=== PATIENT | male | born 1980 | race Caucasian/White ===

== ENCOUNTER 2024-06-24 12:23 | Inpatient (IN) | payer SELFPAY ==
[2024-06-24 12:24] VITALS: BP 172/102; PULSE 95; RESP 18; TEMP 36; O2SAT 95; BMI 31.5
--- NOTE | 2024-06-24 12:28 | W.ED.PSYCHS ---
HPI - Psych General: Chief Complaint: Psychiatric Symptoms Stated Complaint: 96 Time Seen by Provider: 06/24/24 12:24 Source: patient and police Mode of arrival: ambulatory Limitations: no limitations History of Present Illness: 43-year-old male here with police officers under a court ordered 96-hour hold he states has been fighting with his ex he does appear agitated and very paranoid here he had sent her messages saying he is going to kill himself it also made threats to her and had been placed under the 96-hour hold. Denies any worse improved factors Associated symptoms: Reports suicidal ideation Related Data Home Medications ?Medication ?Instructions ?Recorded ?Confirmed No Known Home Medications 06/24/24 06/24/24 Allergies Allergy/AdvReac Type Severity Reaction Status Date / Time No Known Allergies Allergy Verified 06/24/24 13:14 Review of Systems Const: Denies: fever(s), chills, body aches or change in appetite ENMT: Denies: throat pain or dental pain Card: Denies: chest pain Resp: Denies: dyspnea GI: Denies: abdominal pain, nausea, vomiting or diarrhea Musc: Denies: neck pain or back pain Skin/Breast: Denies: rash Neuro: Denies: headache(s) Psych: Reports: paranoia and suicidal ideation Physical Exam Const: COMMON NORMALS: no acute distress, patient oriented x3 and healthy appearing HENMT: COMMON NORMALS: normocephalic and atraumatic HEAD & SCALP: normocephalic and atraumatic Eye: COMMON NORMALS: conjunctivae normal CONJUNCTIVA: Yes conjunctivae normal Neck/C-Spine: COMMON NORMALS: full ROM and supple Chest: COMMONS NORMALS: normal inspection of the chest Resp: COMMON NORMALS: normal respiratory effort Cardio: COMMON NORMALS: regular rate RATE: regular rate Extremity: COMMON NORMALS: normal to inspection and full ROM Neuro: COMMON NORMALS: patient oriented x3, moves all extremities and no focal motor deficits Psych: COMMON NORMALS: mental status grossly normal and cooperative ATTITUDE: Yes agitated MOOD & AFFECT: Yes irritable Skin: COMMON NORMALS: no rashes or lesions noted and no wounds GENERAL SKIN EXAM: no rashes or lesions noted Course Vital Signs: Vital signs: Vital Signs Temperature 96.8 F L 06/24/24 12:24 Pulse Rate 95 06/24/24 12:24 Respiratory Rate 18 06/24/24 12:24 Blood Pressure 172/102 06/24/24 12:24 Pulse Oximetry 95 06/24/24 12:24 Oxygen Delivery Me thod Room Air 06/24/24 12:24 MDM - Psych Medical Decision Making Patient presents here under court ordered 96-hour hold. Making suicidal threats he is medically cleared I spoke to psychiatrist will admit Medical Records I reviewed the patient's medical records. Lab Data I reviewed the patient's lab results. 06/24/24 12:45 06/24/24 12:45 Laboratory Results WBC 7.26 10^3/uL (3.29-11.43) 06/24/24 12:45 RBC 4.79 10^6/uL (3.85-5.65) 06/24/24 12:45 Hgb 14.80 g/dL (11.27-16.99) 06/24/24 12:45 Hct 44.9 % (37-53) 06/24/24 12:45 MCV 93.7 fl (82-101) 06/24/24 12:45 MCH 30.9 pg (27-33) 06/24/24 12:45 MCHC 33.0 g/dL (30-55) 06/24/24 12:45 RDW 12.3 % (12.1-15.1) 06/24/24 12:45 Plt Count 311 10^3/cmm (157-399) 06/24/24 12:45 MPV 8.2 fL (7.4-10.4) 06/24/24 12:45 Neut % (Auto) 63.7 % 06/24/24 12:45 Lymph % (Auto) 24.7 % 06/24/24 12:45 [place] % (Auto) 8.0 % 06/24/24 12:45 Eos % (Auto) 2.5 % 06/24/24 12:45 Baso % (Auto) 0.8 % 06/24/24 12:45 Neut # (Auto) 4.63 10^3/uL (1.8-7.7) 06/24/24 12:45 Lymph # (Auto) 1.8 10^3/uL (0.8-4.8) 06/24/24 12:45 [place] # (Auto) 0.6 10^3/uL (0.2-0.9) 06/24/24 12:45 Eos # (Auto) 0.2 10^3/uL (0.0-0.8) 06/24/24 12:45 Baso # (Auto) 0.1 10^3/uL (0.0-0.1) 06/24/24 12:45 Nucleated RBC % (auto) 0 % 06/24/24 12:45 Nucleated RBCs # 0.0 /100WBC 06/24/24 12:45 Sodium 141 mmol/L (136-145) 06/24/24 12:45 Potassium 4.2 mmol/L (3.5-5.1) 06/24/24 12:45 Chloride 102 mmol/L (98-107) 06/24/24 12:45 Carbon Dioxide 29 mmol/L (22-29) 06/24/24 12:45 Anion Gap 14.2 (5-19) 06/24/24 12:45 BUN 12 mg/dL (6-20) 06/24/24 12:45 Creatinine 1.0 mg/dL (0.7-1.2) 06/24/24 12:45 GFR Calculation 81.6 mL/min (90-130) L 06/24/24 12:45 Glucose 104 mg/dL (65-115) 06/24/24 12:45 Calculated Osmolality 292 mOsm/kg (285-295) 06/24/24 12:45 Calcium 9.4 mg/dL (8.5-10.5) 06/24/24 12:45 Total Bilirubin 0.7 mg/dL (0.15-1.2) 06/24/24 12:45 AST 17 U/L (0-40) 06/24/24 12:45 ALT 13 U/L (0-41) 06/24/24 12:45 Alkaline Phosphatase 83 U/L (40-130) 06/24/24 12:45 Total Protein 7.5 g/dL (6.6-8.7) 06/24/24 12:45 Albumin 4.7 g/dL (3.5-5.2) 06/24/24 12:45 Globulin 2.8 g/dL (1.3-4.6) 06/24/24 12:45 Salicylates < 0.3 mg/dL (3-10) L 06/24/24 12:45 Urine Opiates Screen Negative ng/mL (Negative) 06/24/24 12:31 Acetaminophen < 5.0 ug/mL (10-30) L 06/24/24 12:45 Ur Barbiturates Screen Negative ng/mL (Negative) 06/24/24 12:31 Ur Phencyclidine Scrn Negative ng/mL (Negative) 06/24/24 12:31 Ur Amphetamines Screen Positive ng/mL (Negative) H 06/24/24 12:31 U Benzodiazepines Scrn Negative ng/mL (Negative) 06/24/24 12:31 Urine Cocaine Screen Negative ng/mL (Negative) 06/24/24 12:31 U Marijuana (THC) Screen Negative ng/mL (Negative) 06/24/24 12:31 Ethyl Alcohol < 10 mg/dL (0-10) 06/24/24 12:45 No radiology studies performed this visit Discharge Plan Discharge Patient Disposition: Admitted As Inpatient Admit Provider: Mehul Lr Clinical Impression: Suicidal ideation Condition: Stable Coding Level 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
--- NOTE | 2024-06-24 12:50 | PC.NURSE ---
96 hr rights reviewed with pt @[id number] with assistance of [facility] program officer Rudy Flores. All education reviewed at this time. Pt verbalized understanding to hold, but was unhappy about being placed on one. Pt currently cooperative, and appears agitated, but following verbal directions when asked. Pt copy left with pt. Pt provided a sandwich, soda and water at this time. No further needs.
[2024-06-24 12:52] LABS: Basophils # 0.1 10^3/uL (0.0-0.1); Basophils % 0.8 %; Eosinophils # 0.2 10^3/uL (0.0-0.8); Eosinophils % 2.5 %; Hematocrit 44.9 % (37-53); Lymphocytes # 1.8 10^3/uL (0.8-4.8); Lymphocytes % 24.7 %; Mean Corpuscular Hemoglobin 30.9 pg (27-33); Mean Corpuscular Volume 93.7 fl (82-101); Mean Platelet Volume 8.2 fL (7.4-10.4); Monocytes # 0.6 10^3/uL (0.2-0.9); Neutrophils # 4.63 10^3/uL (1.8-7.7); Neutrophils % 63.7 %; Nucleated Red Blood Cells % 0 %; Platelet Count 311 10^3/cmm (157-399); Red Blood Count 4.79 10^6/uL (3.85-5.65); Red Cell Distribution Width 12.3 % (12.1-15.1); White Blood Count 7.26 10^3/uL (3.29-11.43)
[2024-06-24 13:03] LABS: Amphetamines Screen Urine Positive (Negative); Barbiturates Screen Urine Negative (Negative); Benzodiazepines Screen Urine Negative (Negative); Cocaine Screen Urine Negative (Negative); Opiate Screen Urine Negative (Negative); PCP Screen Urine Negative (Negative); THC Screen Urine Negative (Negative)
[2024-06-24 13:08] LABS: Acetaminophen < 5.0 ug/mL (10-30); Alanine Aminotransferase 13 U/L (0-41); Albumin Level 4.7 g/dL (3.5-5.2); Alcohol Level < 10 mg/dL (0-10); Alkaline Phosphatase 83 U/L (40-130); Anion Gap 14.2 (5-19); Aspartate Amino Transferase 17 U/L (0-40); Blood Urea Nitrogen 12 mg/dL (6-20); Calcium 9.4 mg/dL (8.5-10.5); Carbon Dioxide 29 mmol/L (22-29); Chloride 102 mmol/L (98-107); Creatinine Clr Calc Pharmacy 112.7841; Globulin 2.8 g/dL (1.3-4.6); Glomerular Filtration Rate 81.6 mL/min (90-130); Glucose 104 mg/dL (65-115); Osmolality Calculated 292 mOsm/kg (285-295); Potassium 4.2 mmol/L (3.5-5.1); Salicylate < 0.3 mg/dL (3-10); Sodium 141 mmol/L (136-145); Total Bilirubin 0.7 mg/dL (0.15-1.2); Total Protein 7.5 g/dL (6.6-8.7)
[2024-06-24 13:52] VITALS: BP 149/92; PULSE 94; RESP 16; TEMP 36.7; O2SAT 99
[2024-06-24 14:00] VITALS: BP 149/92; PULSE 94; RESP 16; TEMP 36.7; O2SAT 99
[2024-06-24 19:59] VITALS: BP 145/100; PULSE 86; RESP 18; TEMP 37; O2SAT 98
[2024-06-24] MEDS: nicotine 4 mg lozenge MUCOUS MEM (21:15)
[2024-06-25 06:00] VITALS: BP 132/77; PULSE 77; RESP 16; TEMP 36.4; O2SAT 96
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
[2024-06-25] MEDS: nicotine 4 mg lozenge MUCOUS MEM ×2 (08:28→16:22)
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
[2024-06-25 14:00] VITALS: RESP 16
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
[2024-06-25 20:51] VITALS: BP 128/84; PULSE 96; RESP 18; TEMP 36.8; O2SAT 99
[2024-06-26 06:00] VITALS: BP 145/79; PULSE 81; RESP 18; TEMP 36.6; O2SAT 97
[2024-06-26] MEDS: nicotine 4 mg lozenge MUCOUS MEM ×4 (08:43→19:53)
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
[2024-06-26 14:00] VITALS: BP 145/85; PULSE 77; RESP 17; TEMP 36.6; O2SAT 99
--- NOTE | 2024-06-26 18:43 | P.NPUPN_ITS ---
Subjective NPU 2 Subjective: Patient presented today continuing to report that he is not needing to be here. He reported that he has no understanding or knowledge of any protection order that was served on 06/23/2024. He reported that he is not violent and has not hurt anyone in any situation in 20 years. We discussed the significant concerns we have if he is incapable of being honest about the situation we will be hard to evaluate his ability to be appropriate when he discharges. He continues to report no need for medication and no interest in medication. He continues to downplay the significance of any addiction denying the fact that he might not recall having the protection order for that because he was high on methamphetamine. Mental Status Exam 2 MSE Comments: This is an overweight but well developed white male in hospital scrubs with limited grooming and eye contact. No abnormal movements except for mild to moderate psychomotor agitation. Mostly uncooperative with exam in moderate to extreme distress. Speech was slightly increased rate and volume. Mood described as upset, affect is congruent and irritable. Thought process, linear. Thought content: patient denies suicidal or homicidal ideation, there were no delusions reported or noted, he denied auditory or visual hallucinations. Expressed suicidal thoughts but stated no intention to act on them. Denied any current thoughts of violence towards others. Reported significant anxiety due to current circumstances, including being in the hospital and concerns about his home and animals. Denied having depression, stating he does not have time for it. Described mood as feeling like all hope is lost. Expressed feelings of being persecuted, believing others are out to ruin his life. Denied experiencing visual hallucinations. Attention and concentration are intact and memory appeared somewhat unreliable likely intentionally because of aggressive behavior but wanting to discharge, but none were formally tested. He is alert and oriented x 3. Insight and judgment appeared limited and impulse control was impaired. Vitals/I&O/Wt Last Vital Signs Temp 98.7 F 06/26/24 19:57 Pulse 82 06/26/24 19:57 Resp 18 06/26/24 19:57 BP 152/97 06/26/24 19:57 Pulse Ox 97 06/26/24 19:57 O2 Del Method Room Air 06/26/24 06:00 Data NPU 06/24/24 12:45 06/24/24 12:45 A&P PDMP PDMP Reviewed: Not Reviewed Involuntary Hold Information 2 Hold Status: Legal Status: 96 Hour Hold Date/Time Hold Expires: 06/30/24 @ 00:26 Attestations NPU 2 Medical Necessity Statement*: Inpatient hospitalization is medically necessary and the clinically appropriate intervention at this time. We will monitor/initiate medications and make changes as indicated. Likely length of stay 3-5 days. Coding Level of Care Code Acute Code for Chg Fwmaverick
[2024-06-26 19:57] VITALS: BP 152/97; PULSE 82; RESP 18; TEMP 37.1; O2SAT 97
[2024-06-27 06:00] VITALS: BP 132/82; PULSE 66; RESP 16; O2SAT 99
[2024-06-27] MEDS: nicotine 4 mg lozenge MUCOUS MEM ×6 (10:03→21:49)
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
[2024-06-27 14:00] VITALS: BP 151/98; PULSE 76; RESP 18; TEMP 36.6; O2SAT 99
--- NOTE | 2024-06-27 19:19 | P.NPUPN_ITS ---
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 He denies anything in the affidavits other than making aggressive comments. He continues to deny any aggressive behavior either now or in the past in this relationship. Though the protective order does include history of a another event back in January of last year. He denied any need for any medications. Mental Status Exam 2 MSE Comments: This is an overweight but well developed white male in hospital scrubs with limited grooming and eye contact. No abnormal movements except for mild to moderate psychomotor agitation. Mostly uncooperative with exam in moderate to extreme distress. Speech was slightly increased rate and volume. Mood described as upset, affect is congruent and irritable. Thought process, linear. Thought content: patient denies suicidal or homicidal ideation, there were no delusions reported or noted, he denied auditory or visual hallucinations. Expressed suicidal thoughts but stated no intention to act on them. Denied any current thoughts of violence towards others. Reported significant anxiety due to current circumstances, including being in the hospital and concerns about his home and animals. Denied having depression, stating he does not have time for it. Described mood as feeling like all hope is lost. Expressed feelings of being persecuted, believing others are out to ruin his life. Denied experiencing visual hallucinations. Attention and concentration are intact and memory appeared somewhat unreliable likely intentionally because of aggressive behavior but wanting to discharge, but none were formally tested. He is alert and oriented x 3. Insight and judgment appeared limited and impulse control was impaired. Vitals/I&O/Wt Last Vital Signs Temp 98 F 06/27/24 14:00 Pulse 76 06/27/24 14:00 Resp 18 06/27/24 14:00 BP 151/98 06/27/24 14:00 Pulse Ox 99 06/27/24 14:00 O2 Del Method Room Air 06/26/24 06:00 Data NPU 06/24/24 12:45 06/24/24 12:45 A&P Assessment and plan (1) Suicidal ideation: (2) Partner relational problem: (3) Complicated bereavement: (4) Anxiety: (5) Homicidal ideation: Plan This is a 43-year-old white male with a significant history of addiction and concerns for agitation and aggression who presents resistant to treatment on a 96-hour hold. The assessment indicates that the individual is experiencing significant anxiety related to the current situation, which involves being involuntarily held in a psychiatric facility. There is a history of expressing suicidal ideation, although the individual denies any current intention to harm themselves or others. The individual reports feeling overwhelmed and perceives the situation as a threat to their personal life and well-being. There is no history of psychiatric hospitalization or outpatient services, and the individual denies having a history of depression or anxiety as ongoing issues. The individual also reports a significant traumatic event in the past, specifically the loss of a daughter in a car accident, which may contribute to the current emotional state. 1. He denies current need for medication. 2. Continue every 15 minute checks for safety. 3. Encourage individual, group and milieu therapies. 4. Encourage sober living treatment after discharge at the highest level of care to which he is willing to commit. 5. Get collateral information as patient continues to be likely unreliable as a historian. 6. Evaluate against the backdrop of the 96-hour hold. PDMP PDMP Reviewed: Not Reviewed Involuntary Hold Information 2 Hold Status: Legal Status: 96 Hour Hold Date/Time Hold Expires: 06/30/24 @ 00:26 Attestations NPU 2 Medical Necessity Statement*: Inpatient hospitalization is medically necessary and the clinically appropriate intervention at this time. We will monitor/initiate medications and make changes as indicated. Likely length of stay 3-5 days. Coding Level of Care Code Acute Code for Chg Fwd Diagnoses Suicidal ideation R45.851 Partner relational problem Z63.0 Complicated bereavement F43.21 Anxiety F41.9 Homicidal ideation R45.850
[2024-06-27 20:19] VITALS: BP 126/87; PULSE 84; RESP 16; O2SAT 100
[2024-06-28 06:00] VITALS: RESP 16
[2024-06-28] MEDS: nicotine 4 mg lozenge MUCOUS MEM ×6 (08:22→23:25)
--- NOTE | 2024-06-28 10:23 | PC.NURSE ---
Pt states that he rested well last night. He denies anxiety and depression, but states that having to cont to be in here is not helping the situation. States that he feels frustrated more than anything. States that he had bm yesterday. Pain is in low back and rates that a 6/10. He declines any medications for this. Did get up and take a shower today. The aid helped him look in his phone for numbers and he has been making a few calls today.
[2024-06-28 14:00] VITALS: BP 130/83; PULSE 68; RESP 16; O2SAT 100
--- NOTE | 2024-06-28 18:08 | P.NPUPN_ITS ---
Subjective NPU 2 Subjective: Patient presents today reporting that he is doing okay overall. He continues to be resistant to being here but was last agitated and aggressive about his position. We continued to discuss concerns about the protective order that is suggestive that he was acting out on his aggressive ideations right before he came to the hospital. But he continues to assert that he has not been aggressive or acted out on these thoughts. He denied any need or desire for medication. Mental Status Exam 2 MSE Comments: This is an overweight but well developed white male in hospital scrubs with limited grooming and eye contact. No abnormal movements except for mild to moderate psychomotor agitation. Mostly uncooperative with exam in moderate to extreme distress. Speech was slightly increased rate and volume. Mood described as upset, affect is congruent and irritable. Thought process, linear. Thought content: patient denies suicidal or homicidal ideation, there were no delusions reported or noted, he denied auditory or visual hallucinations. Expressed suicidal thoughts but stated no intention to act on them. Denied any current thoughts of violence towards others. Reported significant anxiety due to current circumstances, including being in the hospital and concerns about his home and animals. Denied having depression, stating he does not have time for it. Described mood as feeling like all hope is lost. Expressed feelings of being persecuted, believing others are out to ruin his life. Denied experiencing visual hallucinations. Attention and concentration are intact and memory appeared somewhat unreliable likely intentionally because of aggressive behavior but wanting to discharge, but none were formally tested. He is alert and oriented x 3. Insight and judgment appeared limited and impulse control was impaired. Vitals/I&O/Wt Last Vital Signs Temp 98.8 F 06/28/24 22:00 Pulse 82 06/28/24 22:00 Resp 18 06/28/24 22:00 BP 148/96 06/28/24 22:00 Pulse Ox 95 06/28/24 22:00 O2 Del Method Room Air 06/26/24 06:00 Weight last 48 hrs Weight 99.881 kg Data NPU 06/24/24 12:45 06/24/24 12:45 A&P Assessment and plan (1) Suicidal ideation: (2) Partner relational problem: (3) Complicated bereavement: (4) Anxiety: (5) Homicidal ideation: Plan This is a 43-year-old white male with a significant history of addiction and concerns for agitation and aggression who presents resistant to treatment on a 96-hour hold. The assessment indicates that the individual is experiencing significant anxiety related to the current situation, which involves being involuntarily held in a psychiatric facility. There is a history of expressing suicidal ideation, although the individual denies any current intention to harm themselves or others. The individual reports feeling overwhelmed and perceives the situation as a threat to their personal life and well-being. There is no history of psychiatric hospitalization or outpatient services, and the individual denies having a history of depression or anxiety as ongoing issues. The individual also reports a significant traumatic event in the past, specifically the loss of a daughter in a car accident, which may contribute to the current emotional state. 1. He denies current need for medication. 2. Continue every 15 minute checks for safety. 3. Encourage individual, group and milieu therapies. 4. Encourage sober living treatment after discharge at the highest level of care to which he is willing to commit. 5. Get collateral information as patient continues to be likely unreliable as a historian. 6. Evaluate against the backdrop of the 96-hour hold. May need to extend to 21-day hold. PDMP PDMP Reviewed: Not Reviewed Involuntary Hold Information 2 Hold Status: Legal Status: 96 Hour Hold Date/Time Hold Expires: 06/30/24 @ 00:26 Attestations NPU 2 Medical Necessity Statement*: Inpatient hospitalization is medically necessary and the clinically appropriate intervention at this time. We will monitor/initiate medications and make changes as indicated. Likely length of stay 3-5 days. Coding Level of Care Code Acute Code for Chg Fwd Diagnoses Suicidal ideation R45.851 Partner relational problem Z63.0 Complicated bereavement F43.21 Anxiety F41.9 Homicidal ideation R45.850
[2024-06-28] MEDS: sennosides-docusate Tablet 1 TAB PO (21:23)
[2024-06-28 22:00] VITALS: BP 148/96; PULSE 82; RESP 18; TEMP 37.1; O2SAT 95
[2024-06-29 06:00] VITALS: BP 153/95; PULSE 63; RESP 17; O2SAT 96
[2024-06-29] MEDS: nicotine 4 mg lozenge MUCOUS MEM ×5 (08:40→18:42)
--- NOTE | 2024-06-29 11:59 | P.NPUPN_ITS ---
Subjective NPU 2 Subjective: Patient presented today reporting that he is doing fine. After realizing he was not being discharged he spent 30 to 45 minutes cursing at this continuity writer on a couple of different occasions. Speaking about that this continuity writer is the most horrible person he is ever met and asserting that the only reason why he is being kept is to keep beds full. He continued to demonstrate little insight on how his protective order might affect thoughts about him being safe as well as how him screaming for 45 minutes does not suggest that he is ready for discharge. He denied any need for medication and requested to be discharged as soon as possible. Mental Status Exam 2 MSE Comments: This is an overweight but well developed white male in hospital scrubs with limited grooming and eye contact. No abnormal movements except for moderate to severe psychomotor agitation. Mostly uncooperative with exam in moderate to extreme distress. Speech was slightly increased rate and volume. Mood described as pissed off, affect is congruent and irritable. Thought process, linear. Thought content: patient denies suicidal or homicidal ideation, there were no delusions reported or noted, he denied auditory or visual hallucinations. Expressed suicidal thoughts but stated no intention to act on them. Denied any current thoughts of violence towards others. Reported significant anxiety due to current circumstances, including being in the hospital and concerns about his home and animals. Denied having depression, stating he does not have time for it. Described mood as feeling like all hope is lost. Expressed feelings of being persecuted, believing others are out to ruin his life. Denied experiencing visual hallucinations. Attention and concentration are intact and memory appeared somewhat unreliable likely intentionally because of aggressive behavior but wanting to discharge, but none were formally tested. He is alert and oriented x 3. Insight and judgment appeared limited and impulse control was impaired. Vitals/I&O/Wt Last Vital Signs Temp 98.8 F 06/28/24 22:00 Pulse 63 06/29/24 06:00 Resp 17 06/29/24 06:00 BP 153/95 06/29/24 06:00 Pulse Ox 96 06/29/24 06:00 O2 Del Method Room Air 06/26/24 06:00 Weight last 48 hrs Weight 99.881 kg Data NPU 06/24/24 12:45 06/24/24 12:45 A&P Assessment and plan (1) Suicidal ideation: (2) Partner relational problem: (3) Complicated bereavement: (4) Anxiety: (5) Homicidal ideation: Plan This is a 43-year-old white male with a significant history of addiction and concerns for agitation and aggression who presents resistant to treatment on a 96-hour hold. The assessment indicates that the individual is experiencing significant anxiety related to the current situation, which involves being involuntarily held in a psychiatric facility. There is a history of expressing suicidal ideation, although the individual denies any current intention to harm themselves or others. The individual reports feeling overwhelmed and perceives the situation as a threat to their personal life and well-being. There is no history of psychiatric hospitalization or outpatient services, and the individual denies having a history of depression or anxiety as ongoing issues. The individual also reports a significant traumatic event in the past, specifically the loss of a daughter in a car accident, which may contribute to the current emotional state. 1. He denies current need for medication. 2. Continue every 15 minute checks for safety. 3. Encourage individual, group and milieu therapies. 4. Encourage sober living treatment after discharge at the highest level of care to which he is willing to commit. 5. Get collateral information as patient continues to be likely unreliable as a historian. 6. Evaluate against the backdrop of the 96-hour hold. May need to extend to 21-day hold. PDMP PDMP Reviewed: Not Reviewed Involuntary Hold Information 2 Hold Status: Legal Status: 96 Hour Hold Date/Time Hold Expires: 06/30/24 @ 00:26 Attestations NPU 2 Medical Necessity Statement*: Inpatient hospitalization is medically necessary and the clinically appropriate intervention at this time. We will monitor/initiate medications and make changes as indicated. Likely length of stay 3-5 days. Coding Level of Care Code Acute Code for Chg Fwd Diagnoses Suicidal ideation R45.851 Partner relational problem Z63.0 Complicated bereavement F43.21 Anxiety F41.9 Homicidal ideation R45.850
--- NOTE | 2024-06-29 13:18 | PC.NURSE ---
During talk with Dr. Lr, patient's voice is raised, saying such things to Dr. Lr, that he is a cock sucker mother fucker. Patient said that Dr. Lr is a segundo head cock sucker motherfucker and that he isn't going to stroke your ego to get out of here. Patient said that he is being held prisoner in a [place] being held against his will here. Patient keeps saying that Dr. Lr is a segundo-head. Patient says that Dr. Lr is a straight up piece of shit and you are going to hell for it Patient says that Dr. Lr has ruined his life. Patient also said that he wants to punch Dr. Lr. Patient said, I fucking hate you to Dr. Lr.
[2024-06-29 14:00] VITALS: BP 129/93; PULSE 92; RESP 17; O2SAT 97
--- NOTE | 2024-06-29 14:32 | PC.NURSE ---
Anger Patient is at window, yelling at Dr. Lr. Patient says that he is going to tell the paddock judge just what the fuck I think of you. Why would you do that, it doesn't have to go that far. Everything was fucking fine before I got here, then I got here you make my life worse and worse and worse. I don't got goddamn piles of money from torturing people like you. You are a piece of shit, you've got to make your goddamn piles of money so that you can run your fucking goddamn [place] . It's probably because I'm white, what other fuck reason is there? What other reason do you have to keep me here? Patient is saying that the is a rude ass mother fucker, it bothers you when I don't kiss your ass and stroke your fucking ego. You got off on this. You get off on hurting other people. I could be at home to make myself survive, you are going to make myself homeless. What kind of good are you doing for me?
[2024-06-29] MEDS: sennosides-docusate Tablet 1 TAB PO (20:07)
[2024-06-29 20:08] VITALS: BP 147/90; PULSE 91; RESP 18; TEMP 36.7; O2SAT 100
[2024-06-30 06:00] VITALS: BP 133/91; PULSE 66; RESP 16; O2SAT 97
[2024-06-30] MEDS: nicotine 4 mg lozenge MUCOUS MEM ×2 (08:11→11:27)
--- NOTE | 2024-06-30 10:18 | PC.NURSE ---
Pt states that he slept good last night after being in a new bed. He reinterated that his 96 hour hold was up at 1226 today and he was leaving at this time, because no additional papers were served to him. From there pt refused to answer the remainder of the assessment questions. He proceeded to go to his room and collect the few belongings he had sitting in there and brought them out to the bench at the nurses station. Pt later came to the nurses station stating that he wanted a nicotine lozenge even if it wasn't time. 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 He then began to tell me that he was here under false pretenses and he needed to be let out today. He is very sharon and irritable today. Up pacing the [address] way.
--- NOTE | 2024-06-30 12:37 | W.PM.NPUDCS ---
Diagnoses at Discharge Discharge Diagnosis (1) Suicidal ideation: Status: Acute (2) Partner relational problem: Status: Acute (3) Complicated bereavement: Status: Acute (4) Anxiety: Status: Acute (5) Homicidal ideation: Status: Acute Reason for Visit Reason for Visit: 96 Brief History: History of Present Illness Jj Maya is a 43 year old male who presented to the emergency department with the following report: General: Chief Complaint: Psychiatric Symptoms Stated Complaint: 96 Time Seen by Provider: 06/24/24 12:24 Source: patient and police Mode of arrival: ambulatory Limitations: no limitations History of Present Illness: 43-year-old male here with police officers under a court ordered 96-hour hold he states has been fighting with his ex he does appear agitated and very paranoid here he had sent her messages saying he is going to kill himself it also made threats to her and had been placed under the 96-hour hold. Denies any worse improved factors Associated symptoms: Reports suicidal ideation. He was admitted to the neuropsychiatric unit for definitive treatment of those issues. He is unknown to [facility] psychiatry through inpatient or outpatient services. He denies any significant past psychiatric history. He presented very distraught and agitated and not feeling that being on a 96-hour hold was fair. It was noted that he likely has an ex parte today that he was served with that he denies. So it is likely that he needs to be considered a resistant historian. We will likely need to get collateral information to confirm the authenticity of his reports. Additionally he presented with a UDS positive for amphetamines though very much downplayed any significance to a positive drug screen reporting that he may be uses amphetamines once or twice a month and denied a current positive screen having any significance to his behavior pattern. He presented today reporting: Chief complaint Expressed suicidal ideation following a conflict with a partner, but denies any current intention to harm self or others. History of the present complaint The patient reports having a particularly bad day, which led to saying things in anger that they now regret. This incident occurred two days after confronting someone about their partner's infidelity, which resulted in the patient being brought to the current setting. The patient expresses confusion and frustration about the situation, feeling that their life is being ruined by these events. They mention sending numerous text messages in anger, including a statement about intending to kill themselves, although they assert that they have no intention of following through with such actions. The patient acknowledges having said similar things in the past when angry but insists they did not mean it then either. The patient denies any history of psychiatric hospitalization or outpatient mental health services, stating they do not need such interventions. They express a strong desire to return home, feeling that their current situation is unjustified. The patient reports experiencing significant anxiety due to the current circumstances, fearing the loss of their home and livelihood. However, they deny having a history of anxiety as a regular issue, stating that they do not typically experience anxiety outside of the present situation. The patient discusses a history of alcohol use, particularly following the of their daughter in a car accident six years ago. They describe drinking heavily for about three years, from 11:00 AM until closing time daily, but quit drinking three years ago at the insistence of a girlfriend. The patient denies any current alcohol use and reports no history of drug or alcohol treatment. They mention occasional marijuana use, starting in their teenage years, and using it once or twice a month currently. The patient denies being a drug addict and reports no history of using other drugs such as opiates, mushrooms, or ecstasy. The patient briefly mentions the traumatic loss of their daughter, who at the age of [age] in a car accident involving a tractor. They express reluctance to discuss this event further. The patient denies any history of depression, stating that while they experience normal fluctuations in mood, they do not have depression. They also deny any history of paranoia, hearing voices, or seeing things that are not there. The patient reports having nightmares but denies experiencing flashbacks. The patient provides some family history, noting that both parents have from cancer. They mention having a brother but indicate no current contact with him. The patient denies any family history of mental health issues or addiction problems. They also deny any history of neglect, abuse, or involvement with Child Protective Services during their childhood. 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 They express concern about their current living situation, fearing that their home and animals may be lost due to their current circumstances. Mental health history No history of psychiatric hospitalization or outpatient services. Denies history of depression, stating he experiences typical transient sadness but not clinical depression. Reports no history of anxiety as a regular issue, though currently experiencing significant anxiety due to situational stress. No history of hearing voices, seeing things, or paranoia outside of current situational stress. Denies history of suicide attempts or family history of suicide. Reports having said he would kill himself during a moment of anger but insists he has no intention of doing so. No history of nightmares or flashbacks, except for nightmares related to the traumatic loss of his daughter in a car accident six years ago. No obsessive-compulsive behaviors reported. No family history of mental health issues. Social history Identifies as heterosexual. Has a history of heavy alcohol use following the of his daughter six years ago, drinking heavily from 11:00 AM until closing time daily, but quit three years ago at the insistence of a girlfriend. Currently does not consume alcohol. Smokes cigarettes, approximately three to five per day, a habit since teenage years. Occasionally uses cannabis, about once or twice a month, a habit also started in teenage years. No other drug use reported. 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 Currently feels homeless and unemployed due to his current situation. No contact with his brother. Parents are , having from cancer three years ago. No history of childhood neglect or abuse. Graduated from high school with no additional training or education. Hospital Course Hospital Course During the hospitalization, the patient had routine laboratory studies which were within normal limits except for a few outliers.? Additionally, there was a general medical evaluation which was also within normal limits and revealed no new acute processes.? At the time of discharge, lethality was denied.? Mood and anxiety were well managed.? The patient endorsed a plan to avoid all drugs of abuse and follow up with the aftercare recommendations of the treatment team.? He had minimized any suicidal or homicidal thoughts and was disinterested in any further treatment on the psychiatric unit. The patient was evaluated and deemed to be absent credible lethality and had achieved the maximum benefit from an inpatient hospitalization, and so was discharged. ?He minimized any desire to receive help with amphetamine abuse despite his positive test on initial UDS. ? Involuntary Hold Information Hold Status: Legal Status: 96 Hour Hold Date/Time Hold Expires: 06/30/24 @12:26 Mental Status Exam MSE Comments: This is an overweight but well developed white male in hospital scrubs with limited grooming and eye contact. No abnormal movements were appreciated. He was cooperative with examination and appeared somewhat haughty at times. Speech was normal in rate and volume. Mood described as okay. His affect is irritable. Thought process was linear. Thought content: patient denies suicidal or homicidal ideation, there were no delusions reported or noted, he denied auditory or visual hallucinations. He denied thoughts of harming others or self. No evidence of delusional thinking. He did not appear to be responding to internal stimuli. Attention span was fair. Insight is poor. Judgment was fair. Impulse control appeared adequate. His 96 hour hold was allowed to and he was discharged home. Discharge Data Studies Completed and Pending: Laboratory Results WBC 7.26 10^3/uL (3.2 9-11.43) 06/24/24 12:45 RBC 4.79 10^6/uL (3.8 5-5.65) 06/24/24 12:45 Hgb 14.80 g/dL (11.27 -16.99) 06/24/24 12:45 Hct 44.9 % (37-53) 06/24/24 12:45 MCV 93.7 fl (82-101) 06/24/24 12:45 MCH 30.9 pg (27-33) 06/24/24 12:45 MCHC 33.0 g/dL (30-55) 06/24/24 12:45 RDW 12.3 % (12.1-15.1 ) 06/24/24 12:45 Plt Count 311 10^3/cmm (157 -399) 06/24/24 12:45 MPV 8.2 fL (7.4-10.4) 06/24/24 12:45 Neut % (Auto) 63.7 % 06/24/24 12:45 Lymph % (Auto) 24.7 % 06/24/24 12:45 [place] % (Auto) 8.0 % 06/24/24 12:45 Eos % (Auto) 2.5 % 06/24/24 12:45 Baso % (Auto) 0.8 % 06/24/24 12:45 Neut # (Auto) 4.63 10^3/uL (1.8 -7.7) 06/24/24 12:45 Lymph # (Auto) 1.8 10^3/uL (0.8- 4.8) 06/24/24 12:45 [place] # (Auto) 0.6 10^3/uL (0.2- 0.9) 06/24/24 12:45 Eos # (Auto) 0.2 10^3/uL (0.0- 0.8) 06/24/24 12:45 Baso # (Auto) 0.1 10^3/uL (0.0- 0.1) 06/24/24 12:45 Nucleated RBC % (a uto) 0 % 06/24/24 12:45 Nucleated RBCs # 0.0 /100WBC 06/24/24 12:45 Sodium 141 mmol/L (136-1 45) 06/24/24 12:45 Potassium 4.2 mmol/L (3.5-5 .1) 06/24/24 12:45 Chloride 102 mmol/L (98-10 7) 06/24/24 12:45 Carbon Dioxide 29 mmol/L (22-29) 06/24/24 12:45 Anion Gap 14.2 (5-19) 06/24/24 12:45 BUN 12 mg/dL (6-20) 06/24/24 12:45 Creatinine 1.0 mg/dL (0.7-1. 2) 06/24/24 12:45 GFR Calculation 81.6 mL/min (90-1 30) L 06/24/24 12:45 Glucose 104 mg/dL (65-115 ) 06/24/24 12:45 Calculated Osmolal ity 292 mOsm/kg (285- 295) 06/24/24 12:45 Calcium 9.4 mg/dL (8.5-10 .5) 06/24/24 12:45 Total Bilirubin 0.7 mg/dL (0.15-1 .2) 06/24/24 12:45 AST 17 U/L (0-40) 06/24/24 12:45 ALT 13 U/L (0-41) 06/24/24 12:45 Alkaline Phosphata se 83 U/L (40-130) 06/24/24 12:45 Total Protein 7.5 g/dL (6.6-8.7 ) 06/24/24 12:45 Albumin 4.7 g/dL (3.5-5.2 ) 06/24/24 12:45 Globulin 2.8 g/dL (1.3-4.6 ) 06/24/24 12:45 Salicylates < 0.3 mg/dL (3-10 ) L 06/24/24 12:45 Urine Opiates Scre en Negative ng/mL (N egative) 06/24/24 12:31 Acetaminophen < 5.0 ug/mL (10-3 0) L 06/24/24 12:45 Ur Barbiturates Sc reen Negative ng/mL (N egative) 06/24/24 12:31 Ur Phencyclidine S crn Negative ng/mL (N egative) 06/24/24 12:31 Ur Amphetamines Sc reen Positive ng/mL (N egative) H 06/24/24 12:31 U Benzodiazepines Scrn Negative ng/mL (N egative) 06/24/24 12:31 Urine Cocaine Scre en Negative ng/mL (N egative) 06/24/24 12:31 U Marijuana (THC) Screen Negative ng/mL (N egative) 06/24/24 12:31 Ethyl Alcohol < 10 mg/dL (0-10) 06/24/24 12:45 Vitals: Last Vital Signs Temp 98.0 F 06/29/24 20:08 Pulse 66 06/30/24 06:00 Resp 16 06/30/24 06:00 BP 133/91 06/30/24 06:00 Pulse Ox 97 06/30/24 06:00 O2 Del Method Room Air 06/26/24 06:00 Discharge Plan Discharge Patient Disposition: Home Condition: Stable Prescriptions: No Action No Known Home Medications Discharge Orders: Discharge Order (Routine); Ordered 06/30/24 Ordered By: Rhys Figueroa Referrals: [facility] [Other] (WHEN: Sunday of Every Month TIME: 10:00 A.M. LOCATION: [facility]) [facility] [Other] [facility] [Outside] Discharge Diet: Usual diet Discharge Activity: Resume usual activity Patient Instructions: Generalized Anxiety Disorder, Mood Disorders (DC), Methamphetamine Use Disorder (DC), Opioid Safety Discharge Attestations NPU Time Spent in Discharge Care*: less than 30 min Specific Discharge Activities: Specific discharge activities: educating patient and documenting/other paperwork Coding Level of Care Code Acute Code for Chg Fwd Diagnoses Suicidal ideation R45.851 Partner relational problem Z63.0 Complicated bereavement F43.21 Anxiety F41.9 Homicidal ideation R45.850
[2024-06-30 12:40] VITALS: BP 133/91; PULSE 66; RESP 16; O2SAT 97
== END 2024-06-30 13:14 | disposition home or self-care (01) | DRG 885 ==
LOC: ER 12:33 → NP 13:11
PROVIDERS: Admitting Provider Psychiatry & Neurology Psychiatry; Emergency Provider Emergency Medicine; Visit Provider Psychiatry & Neurology Psychiatry
DX: F22 Delusional disorders (principal); R45.851 Suicidal ideations; R45.1 Restlessness and agitation; F41.9 Anxiety disorder, unspecified; F10.11 Alcohol abuse, in remission; F17.210 Nicotine dependence, cigarettes, uncomplicated; F12.90 Cannabis use, unspecified, uncomplicated; R45.850 Homicidal ideations; Z63.0 Problems in relationship with spouse or partner; Z63.4 Disappearance and death of family member
CPT/HCPCS: 80053; 80306; 80307; 85025; 97150; 97165; 99285; J9999